=== PATIENT | female | born 1945 | race African-American/Black ===

== ENCOUNTER 2022-03-14 10:07 | Inpatient (IN) | payer OTHER ==
[~2022-03-14] VITALS: Ht 177.8 cm; Wt 86.2 kg
[2022-03-14 10:22] VITALS: BP_SYST 159
[2022-03-14 11:29] LABS: BASOPHILS % (AUTO) 0.4 % (0.0-2.0); EOSINOPHILS % (AUTO) 0.1 % (0.0-4.0); HEMATOCRIT 38.2 % (36-48); LYMPHOCYTES # (AUTO) 1.7 K/uL (1.0-5.5); MEAN CORPUSCULAR HEMOGLOBIN 29 pg (27-31); MEAN CORPUSCULAR HGB CONC 34 % (32-36); MEAN CORPUSCULAR VOLUME 86 fL (79.0-98.0); MONOCYTES # (AUTO) 0.5 K/uL (0.0-1.0); MONOCYTES % (AUTO) 5.1 % (1.7-9.3); NEUTROPHILS # (AUTO) 8.3 K/uL (1.8-7.7); NEUTROPHILS % (AUTO) 78.4 % (40.0-70.0); PLATELET COUNT (AUTO) 251 K/uL (130-430); RED BLOOD CELL COUNT(AUTO) 4.43 MIL/uL (4.2-6.2); RED CELL DISTRIBUTION WIDTH 15.1 % (9.0-15.0); WHITE BLOOD COUNT (AUTO) 10.6 K/uL (4.8-10.8)
[2022-03-14] MEDS ORDERED: MORPHINE 4 MG INJ. 4 MG/ML VIAL IM ONE (11:30)
[2022-03-14 11:46] LABS: ANION GAP 11 (5-15); CALCIUM 8.8 mg/dL (8.4-11.0); CHLORIDE 106 mmol/L (98-107); CREATININE 1.25 mg/dL (0.55-1.30); GLUCOSE 118 mg/dL (70-99); UREA NITROGEN, BLOOD 15 mg/dL (8-21)
[2022-03-14 11:53] LABS: ALANINE AMINOTRANSFERASE 17 U/L (12-78); ALBUMIN 3.7 g/dL (3.4-4.8); ASPARTATE AMINOTRANSFERASE 23 U/L (10-37); PROTHROMBIN TIME 10.4 SECS (9.5-12.5); TOTAL BILIRUBIN 0.4 mg/dL (0.0-1.0)
[2022-03-14 12:16] LABS: CKMB RELATIVE INDEX 1.1 (0.0-2.9); CREATINE KINASE MB 3.2 ng/mL (0-3.6)
[2022-03-14] MEDS ORDERED: MORPHINE 4 MG INJ. 4 MG/ML VIAL IVP ONE (13:15)
[2022-03-14] MEDS ORDERED: ENOXAPARIN SODIUM 40 MG/0.4 ML SYRINGE SUBCUT ONE (13:45)
[2022-03-14] MEDS ORDERED: ACET325C5 PO (15:06)
[2022-03-14] MEDS ORDERED: HYDR-3917 PO (15:06)
[2022-03-14] MEDS ORDERED: METH-800 PO (15:06)
[2022-03-14] MEDS ORDERED: LEVO50CA4 PO (15:06)
[2022-03-14] MEDS ORDERED: CHOL500013 PO (15:06)
[2022-03-14] MEDS ORDERED: DOCU250C71 PO (15:06)
[2022-03-14 16:21] LABS: BILIRUBIN,URINE NEGATIVE (NEGATIVE); BLOOD, URINE 1+ (NEGATIVE); CLARITY/URINE CLEAR (CLEAR); COLOR,URINE YELLOW (YELLOW); GLUCOSE,URINE NEGATIVE (NEGATIVE); KETONES,URINE NEGATIVE (NEGATIVE); LEUKOCYTE ESTERASE ,URINE NEGATIVE (NEGATIVE); NITRITE, URINE NEGATIVE (NEGATIVE); PROTEIN URINE NEGATIVE (NEGATIVE); UROBILINOGEN,URINE 0.2 (0.2-1.0)
[2022-03-14 16:38] LABS: BACTERIA,URINE None Seen /HPF (None Seen); MUCUS,URINE None Seen /LPF (None Seen); RBC,URINE 0-3 /HPF (0-3); WBC,URINE NONE SEEN /HPF (0-3)
[2022-03-14 21:10] VITALS: BP_SYST 151
[2022-03-15 02:14] VITALS: BP_SYST 130
[2022-03-15] MEDS: D5/0.45 NS 1,000 ML IV SCH ×2 (07:20→22:01)
[2022-03-15 08:00] VITALS: BP_SYST 137
[2022-03-15] MEDS: DOCUSATE SODIUM 250 MG CAPSULE PO SCH ×2 (09:00→21:00)
[2022-03-15] MEDS ORDERED: ENOXAPARIN SODIUM 40 MG/0.4 ML SYRINGE SUBCUT SCH (09:00)
[2022-03-15 11:30] VITALS: BP_SYST 144
[2022-03-15 17:00] VITALS: BP_SYST 143
[2022-03-15] MEDS ORDERED: METOPROLOL SUCCINATE 25 MG TAB.SR.24H (TOPROL XL) PO ONE (17:00)
[2022-03-15] MEDS: MORPHINE 4 MG INJ. 4 MG/ML VIAL IVP PRN (17:25)
[2022-03-15 20:30] VITALS: BP_SYST 135
[2022-03-16 01:00] VITALS: BP_SYST 134
[2022-03-16] MEDS: D5/0.45 NS 1,000 ML IV SCH ×2 (08:00→22:42)
[2022-03-16] MEDS: DOCUSATE SODIUM 250 MG CAPSULE PO SCH ×2 (09:00→21:00)
[2022-03-16] MEDS: METOPROLOL SUCCINATE 25 MG TAB.SR.24H (TOPROL XL) PO SCH (09:00)
[2022-03-16] MEDS ORDERED: REGADENOSON 0.4 MG/5 ML SYRINGE IVP ONE (10:00)
[2022-03-16 11:26] VITALS: BP_SYST 136
[2022-03-16 15:27] VITALS: BP_SYST 126
[2022-03-16] MEDS ORDERED: BUPIVACAINE /PF 0.25% 30 ML VIAL INJ ONE (18:00)
[2022-03-16] MEDS ORDERED: NS IRRIG SOLN 1000 ML IR ONE (18:00)
[2022-03-16] MEDS ORDERED: LR 1,000 ML IV.SOLN IV ONE (18:00)
[2022-03-16] MEDS ORDERED: fentaNYL CITRATE/PF 100 MCG/2 ML AMP IVP ONE (18:00)
[2022-03-16] MEDS ORDERED: CEFAZOLIN 2 GM IVPB PREMIX 50 ML IV ONE (18:00)
[2022-03-16] MEDS ORDERED: ePHEDrine sulfate 50 MG/ML VIAL IVP ONE (18:00)
[2022-03-16] MEDS ORDERED: METOCLOPRAMIDE HCL 10 MG/2 ML VIAL IVP ONE (18:00)
[2022-03-16] MEDS ORDERED: HYDROmorphone 2 MG/ML VIAL IVP ONE (18:00)
[2022-03-16] MEDS ORDERED: ONDANSETRON HCL 4 MG/2 ML VIAL IVP ONE (18:00)
[2022-03-16] MEDS ORDERED: PROPOFOL 200MG/ 20ML VIAL (DIPRIVAN) IV ONE (18:00)
[2022-03-16] MEDS ORDERED: TRANEXAMIC ACID 1,000 MG/10 ML VIAL IV ONE (18:00)
[2022-03-16] MEDS ORDERED: SEVOFLURANE 15 MIN GAS INH ONE (18:00)
[2022-03-16] MEDS ORDERED: PHENYLEPHRINE HCL 10 MG/ML VIAL (NEOSYNEPHRINE) IV ONE (18:00)
[2022-03-16] MEDS ORDERED: LIDOCAINE 1% 10 MG/ML, 20 ML MDV INJ ONE (18:00)
[2022-03-16] MEDS ORDERED: HYDROmorphone 1 MG/ML INJ. CARTRIDGE IVP PRN (19:00)
[2022-03-16] MEDS ORDERED: ONDANSETRON HCL 4 MG/2 ML VIAL IVP PRN (19:00)
[2022-03-16] MEDS ORDERED: LR 1,000 ML IV SCH (19:00)
[2022-03-16] MEDS ORDERED: HYDROmorphone 2 MG/ML VIAL IVP PRN (19:00)
[2022-03-16] MEDS: CEFAZOLIN 2 GM IVPB PREMIX 50 ML IV SCH (22:42)
[2022-03-16 23:38] VITALS: BP_SYST 150
[2022-03-17 00:37] VITALS: BP_SYST 145
[2022-03-17] MEDS: CEFAZOLIN 2 GM IVPB PREMIX 50 ML IV SCH ×2 (06:09→14:01)
[2022-03-17 08:28] VITALS: BP_SYST 126
[2022-03-17] MEDS: D5/0.45 NS 1,000 ML IV SCH (09:00)
[2022-03-17] MEDS: CHOLECALCIFEROL (VITAMIN D3) 5,000 UNIT TABLET PO SCH (09:12)
[2022-03-17] MEDS: DOCUSATE SODIUM 250 MG CAPSULE PO SCH ×2 (09:12→21:18)
[2022-03-17] MEDS: METOPROLOL SUCCINATE 25 MG TAB.SR.24H (TOPROL XL) PO SCH (09:13)
[2022-03-17] MEDS: traMADol HCL HCL 50 MG TABLET (ULTRAM) PO PRN (09:13)
[2022-03-17] MEDS: ENOXAPARIN SODIUM 40 MG/0.4 ML SYRINGE SUBCUT SCH (09:14)
[2022-03-17 11:39] VITALS: BP_SYST 123
[2022-03-17 15:26] VITALS: BP_SYST 108
[2022-03-17 20:00] VITALS: BP_SYST 111
[2022-03-18] VITALS: BP_SYST 126
[2022-03-18 08:02] LABS: BASOPHILS % (AUTO) 0.5 % (0.0-2.0); EOSINOPHILS # (AUTO) 0.1 K/uL (0.0-0.4); EOSINOPHILS % (AUTO) 0.9 % (0.0-4.0); HEMOGLOBIN 11.4 g/dL (12.0-16.0); LYMPHOCYTES # (AUTO) 2.5 K/uL (1.0-5.5); MEAN CORPUSCULAR HEMOGLOBIN 29 pg (27-31); MEAN CORPUSCULAR HGB CONC 34 % (32-36); MEAN CORPUSCULAR VOLUME 87 fL (79.0-98.0); MONOCYTES # (AUTO) 0.5 K/uL (0.0-1.0); MONOCYTES % (AUTO) 6.2 % (1.7-9.3); NEUTROPHILS # (AUTO) 4.3 K/uL (1.8-7.7); NEUTROPHILS % (AUTO) 58.4 % (40.0-70.0); PLATELET COUNT (AUTO) 186 K/uL (130-430); RED BLOOD CELL COUNT(AUTO) 3.93 MIL/uL (4.2-6.2); RED CELL DISTRIBUTION WIDTH 15.1 % (9.0-15.0); WHITE BLOOD COUNT (AUTO) 7.3 K/uL (4.8-10.8)
[2022-03-18] MEDS: DOCUSATE SODIUM 250 MG CAPSULE PO SCH ×2 (10:46→20:53)
[2022-03-18] MEDS: CHOLECALCIFEROL (VITAMIN D3) 5,000 UNIT TABLET PO SCH (10:47)
[2022-03-18] MEDS: METOPROLOL SUCCINATE 25 MG TAB.SR.24H (TOPROL XL) PO SCH (10:47)
[2022-03-18] MEDS: ENOXAPARIN SODIUM 40 MG/0.4 ML SYRINGE SUBCUT SCH (10:48)
[2022-03-18] MEDS: traMADol HCL HCL 50 MG TABLET (ULTRAM) PO PRN ×2 (10:59→20:58)
[2022-03-18 12:00] VITALS: BP_SYST 125
[2022-03-18] MEDS: MORPHINE 4 MG INJ. 4 MG/ML VIAL IVP PRN (18:56)
[2022-03-18 20:00] VITALS: BP_SYST 119
[2022-03-18] MEDS: cephALEXin 500 MG CAPSULE PO SCH (20:53)
[2022-03-19] VITALS: BP_SYST 122
[2022-03-19] MEDS: CHOLECALCIFEROL (VITAMIN D3) 5,000 UNIT TABLET PO SCH (09:06)
[2022-03-19] MEDS: cephALEXin 500 MG CAPSULE PO SCH ×2 (09:06→22:32)
[2022-03-19] MEDS: traMADol HCL HCL 50 MG TABLET (ULTRAM) PO PRN (09:06)
[2022-03-19] MEDS: DOCUSATE SODIUM 250 MG CAPSULE PO SCH ×2 (09:06→22:32)
[2022-03-19] MEDS: ENOXAPARIN SODIUM 40 MG/0.4 ML SYRINGE SUBCUT SCH (09:06)
[2022-03-19] MEDS: METOPROLOL SUCCINATE 25 MG TAB.SR.24H (TOPROL XL) PO SCH (09:19)
[2022-03-19 21:08] VITALS: BP_SYST 136
[2022-03-20 08:32] VITALS: BP_SYST 130
[2022-03-20 08:43] VITALS: BP_SYST 130
[2022-03-20] MEDS: cephALEXin 500 MG CAPSULE PO SCH (10:06)
[2022-03-20] MEDS: METOPROLOL SUCCINATE 25 MG TAB.SR.24H (TOPROL XL) PO SCH (10:06)
[2022-03-20] MEDS: CHOLECALCIFEROL (VITAMIN D3) 5,000 UNIT TABLET PO SCH (10:07)
[2022-03-20] MEDS: DOCUSATE SODIUM 250 MG CAPSULE PO SCH (10:07)
[2022-03-20] MEDS: ENOXAPARIN SODIUM 40 MG/0.4 ML SYRINGE SUBCUT SCH (10:07)
[2022-03-20 11:37] VITALS: BP_SYST 123
[2022-03-20 13:06] VITALS: BP_SYST 120
[2022-03-20] MEDS: traMADol HCL HCL 50 MG TABLET (ULTRAM) PO PRN (13:25)
== END 2022-03-20 13:30 | DRG 481 ==
LOC: SED 10:07 → SMU 13:19
PROVIDERS: ADMIT Internal Medicine; ATTEND Internal Medicine
PROC: 0QS604Z Reposition Right Upper Femur with Internal Fixation Device, Open Approach (ICD-10-PCS; principal; 2022-03-16 18:00)
DX: S72.141A Displaced intertrochanteric fracture of right femur, initial encounter for closed fracture (principal); D62 Acute posthemorrhagic anemia; E03.9 Hypothyroidism, unspecified; G89.4 Chronic pain syndrome; Z20.822 Contact with and (suspected) exposure to COVID-19; W18.39XA Other fall on same level, initial encounter; Y93.89 Activity, other specified; Y92.89 Other specified places as the place of occurrence of the external cause; Y99.8 Other external cause status
CPT/HCPCS: 36415; 71045; 72192-TC; 73502; 76000; 76376; 80053; 81000; 82550; 82553; 84484; 85025; 85610-TC; 85730-TC; 87081; 93005; 93017; 93306; 94010; 96372; 97110-GP; 97116-GP; 97530-GP; 99285; A9500; J0690; J1170; J1650; J2001; J2270; J2370; J2405; J2704; J2765; J2785; J3010; J3490; J7030; J7120